=== PATIENT | male | born 1955 | race Caucasian/White ===

== ENCOUNTER 2017-12-29 07:15 | Emergency (ER) | payer BC ==
[~2017-12-29] VITALS: Ht 170.2 cm; Wt 82.5 kg
--- OUTSIDE RECORDS SUMMARY | ~2017-12-29 | XMS | Clinical Summary ---
Demographics + + + | Address | [address] | | | [place] [address] | + + + | Home Phone | | + + + | Preferred Language | Unknown | + + + | Marital Status | Single | + + + | Jehovah'S Witness Affiliation | Unknown | + + + | Race | Unknown | + + + | Ethnic Group | Other Race | + + + Author + + + | Author | [facility] | + + + | Organization | [facility] | + + + | Address | Unknown | + + + | Phone | Unavailable | + + + Care Team Providers + +------+ + | Care Ballast Inspector Name | Role | Phone | + +------+ + PP | Unavailable | + +------+ + Source Comments AI is fully live on both [facility] and [facility] & [facility] Allergies Not on File Current Medications [...]
[~2017-12-29 07:15] MED LIST: AUGMENTIN 875-1 EACH PO; [UNRECOGNIZED DRUG - REMARK]
[2017-12-29] MEDS ORDERED: ASPIR 8181 MG PO (07:31)
[2017-12-29] MEDS ORDERED: LOSARTAN-HCTZ1 EAC2 PO (07:31)
[2017-12-29] MEDS ORDERED: AMLODIPINE BESYL5 MG PO (07:32)
--- OUTSIDE RECORDS SUMMARY | 2017-12-29 08:06 | XMS | Clinical Summary ---
Demographics + + + | Address | [address] | | | [place] [address] | + + + | Home Phone | | + + + | Preferred Language | Unknown | + + + | Marital Status | Single | + + + | Church Affiliation | Unknown | + + + | Race | Unknown | + + + | Ethnic Group | Other Race | + + + Author + + + | Author | [facility] | + + + | Organization | [facility] | + + + | Address | Unknown | + + + | Phone | Unavailable | + + + Care Team Providers + +------+ + | Care Np Name | Role | Phone | + +------+ + PP | Unavailable | + +------+ + Source Comments AI is fully live on both [facility] and [facility] Allergies Not on File Current Medications Not on file Active Problems Not on file Social History + +-------+ +--------+------+ | Tobacco Use | Types | Packs/Day | Years | Date | | | | | Used | | + +-------+ +--------+------+ | Never Assessed | | | | | + +-------+ +--------+------+ + + + | Sex Assigned at | Date Recorded | | | | + + + | Not on file | | + + + Plan of Treatment + + + + + | Health Maintenance | Due Date | Last Done | Comments | + + + + + | INFLUENZA VACCINE | | | | | (FLU SHOT) | 7 | | | + + + + + Results Not on filefrom Last 3 Months"
== END 2017-12-29 08:16 | disposition home or self-care (01) ==
LOC: ED 07:15
DX: H65.93 Unspecified nonsuppurative otitis media, bilateral (principal); I10 Essential (primary) hypertension; Z79.82 Long term (current) use of aspirin; Z79.899 Other long term (current) drug therapy
CPT/HCPCS: 99282

== ENCOUNTER 2020-07-18 12:05 | Day surgery (SDC) | payer BC ==
[~2020-07-18] VITALS: Ht 170.2 cm; Wt 92.5 kg
[~2020-07-18 12:05] MED LIST changes: +AMLODIPINE BESYL5 MG PO; +ASPIR 8181 MG PO; +LOSARTAN-HCTZ1 EAC2 PO
[2020-07-18] MEDS ORDERED: ESOMEPRAZOLE MA20 MG PO (12:56)
[2020-07-18] MEDS ORDERED: ATORVASTATIN CA20 MG PO (12:57)
[2020-07-18] MEDS ORDERED: ARNUITY ELLIPT50 MCG INH (12:58)
[2020-07-18] MEDS ORDERED: MULTI-VITAMIN1 EACH PO (12:58)
[2020-07-18] MEDS ORDERED: LABETALOL HCL200 MG PO (12:59)
[2020-07-18] MEDS ORDERED: CARDURA8 MG PO (12:59)
--- NOTE | 2020-07-18 14:03 | NUR ---
07/18/20 1403 Marie Jimenez 1356- PT ARRIVES TO PACU EASILY AROUSABLE TO VOICE. PT REPORTS NO PAIN OR NAUSEA. RESP EVEN AND UNLABORED. OXYGEN SAT HIGH 90'S ON 3L VIA NC. PT PASSING FLATUS. 1403- OXYGEN TITRATED OFF.
--- NOTE | 2020-07-20 11:10 | PATH ---
[facility] [address] [place], [place] [address] Signed SPECIMEN(S): A DUODENUM SPECIMEN(S): B ANTRUM SPECIMEN(S): C DISTAL ESOPHAGUS SPECIMEN(S): D MID ESOPHAGUS SPECIMEN(S): E PROXIMAL ESOPHAGUS SPECIMEN(S): F SPLENIC FLEXURE POLYP SPECIMEN(S): G COLON POLYP AT 60 CM SPECIMEN SOURCE: A. DUODENUM B. ANTRUM C. DISTAL ESOPHAGUS D. MID ESOPHAGUS E. PROXIMAL ESOPHAGUS F. SPLENIC FLEXURE POLYP G. COLON POLYP AT 60 CM CLINICAL HISTORY: History adenomatous polyps of colon, diverticulosis, GERD, esophageal dysphagia. Post-op: Benign esophageal nodules, diverticulosis, polyp x2. Esophagogastroduodenoscopy, colonoscopy. MICROSCOPIC DESCRIPTION: Histologic sections of all submitted blocks are examined by light microscopy. These findings, together with the gross examination, support the pathologic diagnosis. FINAL PATHOLOGIC DIAGNOSIS: A. Duodenum, biopsy: - Duodenal mucosa with mild Prashant's gland hyperplasia. - Negative for dysplasia or malignancy. B. Stomach, antrum, biopsy: - Antral/oxyntic type mucosa with mild chronic, inactive gastritis. - Negative for Helicobacter organisms on HE stain. - Negative for dysplasia or malignancy. C. Esophagus, distal, biopsy: - Squamous mucosa with no histopathologic abnormality. - Negative for intestinal metaplasia, dysplasia, or malignancy. D. Esophagus, mid, biopsy: - Squamous mucosa with minimal chronic inflammation and reactive changes. - Negative for intestinal metaplasia, dysplasia, or malignancy. E. Esophagus, proximal, biopsy: PATIENT NAME: TERRY HANSEN PATHOLOGY DATE OF : 57 REPORT #: [id number] PHYSICIAN: EVELYN CRESPO PCP: JOSÉ SANTAMARIA MD REPORT IS CONFIDENTIAL AND NOT TO BE RELEASED WITHOUT AUTHORIZATION [facility] [address] [place], [place] [address] Signed - Squamous mucosa with no histopathologic abnormality. - Negative for intestinal metaplasia, dysplasia, or malignancy. F. Colon, splenic flexure, polyp, polypectomy: - Tubular adenoma. - Negative for high-grade dysplasia or malignancy. G. Colon, polyp at 60 cm, polypectomy: - Fragments of tubular adenoma. - Negative for high-grade dysplasia or malignancy. NAL:cml:C2NR GROSS DESCRIPTION: Seven specimens are received in seven containers, labeled "MN." A. The specimen, labeled "MN," and designated on the requisition "duodenum biopsy," is received in formalin and consists of two fragments of pink-rosen tissue (0.5 x 0.2 x 0.2 cm in aggregate). The specimen is submitted entirely in cassette (A1). B. The specimen, labeled "MN," and designated on the requisition "antrum biopsy," is received in formalin and consists of two fragments of pink-rosen tissue (0.5 x 0.3 x 0.2 cm in aggregate). The specimen is submitted entirely in cassette (B1). C. The specimen, labeled "MN," and designated on the requisition "distal esophagus biopsy," is received in formalin and consists of two fragments of white-rosen tissue (0.5 x 0.3 x 0.1 cm in aggregate). The specimen is submitted entirely in cassette (C1). D. The specimen, labeled "MN," and designated on the requisition "mid esophagus nodularity," is received in formalin and consists of two fragments of white-rosen tissue (0.5 x 0.4 x 0.1 cm in aggregate). The specimen is submitted entirely in cassette (D1). E. The specimen, labeled "MN," and designated on the requisition "proximal esophagus nodularity," is received in formalin and consists of one fragment of white-rosen tissue (0.4 x 0.2 x 0.1 cm in aggregate). The specimen is submitted entirely in cassette (E1). F. The specimen, labeled "MN," and designated on the requisition "splenic flexure polyp," is received in formalin and consists of one fragment pink-rosen tissue (0.2 x 0.2 x 0.2 cm). The specimen is submitted entirely in cassette (F1). G. The specimen, labeled "MN," and designated on the requisition "colon polypectomy at 60 cm," is received in formalin and consists of four fragments of pink-rosen tissue (0.6 x 0.5 x 0.3 cm in PATIENT NAME: TERRY HANSEN PATHOLOGY DATE OF : 57 REPORT #: [id number] PHYSICIAN: EVELYN CRESPO PCP: JOSÉ SANTAMARIA MD REPORT IS CONFIDENTIAL AND NOT TO BE RELEASED WITHOUT AUTHORIZATION [facility] [address] [place], [place] [address] Signed aggregate). The specimen is submitted entirely in cassette (G1). AC (under the direct supervision of a pathologist) The Gross Description was prepared using a voice recognition system. The report was reviewed for accuracy; however, sound-alike word errors, addition and/or deletions may occur. If there is any question about this report, please contact Client Services. PERFORMING LABORATORY: The technical component was performed by [facility], [address] [place] [id number] (Splitter Head: Fernanda Kang MD; CLIA# [id number]). [facility] [address] [place] [address] (CLIA# [id number]). Diagnostician: Viji Wheeler MD Pathologist Electronically Signed 07/20/2020 Copies: ~ PATIENT NAME: TERRY HANSEN PATHOLOGY DATE OF : 57 REPORT #: [id number] PHYSICIAN: EVELYN CRESPO PCP: JOSÉ SANTAMARIA MD REPORT IS CONFIDENTIAL AND NOT TO BE RELEASED WITHOUT AUTHORIZATION
--- NOTE | 2020-07-20 12:08 | OR ---
[facility] [address] [place], [place] [address] Signed DATE OF OPERATION: 07/18/2020 SURGEON: Edwar Astorga MD PREOPERATIVE DIAGNOSES: 1. Longstanding reflux disease. 2. Mild dysphagia. 3. History of diverticulosis, surveillance colonoscopy. POSTOPERATIVE DIAGNOSES: 1. Mild benign-appearing superficial nodularity of the esophagus and marginal flap valve. 2. Extensive diverticulosis. 3. Polyps x2 of colon. PROCEDURES: 1. Esophagogastroduodenoscopy with biopsy. 2. Total colonoscopy to cecum with snare polypectomy x1 (cold) and cold morcellation polypectomy x1. ANESTHESIA: Intravenous sedation, fentanyl 200 mcg and Versed 9 mg total. INDICATIONS: This 65-year-old white man, who is well known to me from the past and is a patient of Dr. Santamaria. He has been treated for reflux disease over time, occasionally has symptoms from it. He has had occasional dysphagia. Additionally, he has had colonoscopy in the past, noted to have diverticulosis. He is admitted at this time to undergo upper endoscopy and surveillance colonoscopy, understand the risks of bleeding, infection, perforation. FINDINGS: Upper endoscopy showed only some superficial small nodularity to the esophageal mucosa, not worrisome for malignancy. This flap valve was somewhat effaced. The stomach and duodenum were normal except there was some bilious fluid within the stomach. As regards to colon, had extensive diverticular disease from the sigmoid and left colon, but no sign of diverticulosis elsewhere. He had two small polyps, one at the splenic flexure and the other in the sigmoid, both excised completely. Electronically Signed By: EDWAR ASTORGA MD 07/20/20 1208 PATIENT NAME: TERRY HANSEN OPERATIVE REPORT DATE OF : 57 REPORT #: [id number] PHYSICIAN: EDWAR ASTORGA MD PCP: JOSÉ SANTAMARIA MD REPORT IS CONFIDENTIAL AND NOT TO BE RELEASED WITHOUT AUTHORIZATION [facility] [address] [place], [place] [address] Signed DESCRIPTION OF PROCEDURE: The patient was brought to the endoscopy suite given topical Hurricaine spray hypopharyngeal anesthesia and placed in lateral decubitus position given intravenous sedation to the point of slurred speech and nystagmus. A bite block was placed. An Olympus video upper endoscope was passed by hypopharynx. Vocal cords were visualized well and were normal. Scope was advanced to the esophagus. Brief examination showed it to be normal initially. The scope was advanced to the stomach, which was insufflated with air with some bilious fluid within the stomach, but not much. Rugal folds appeared normal. Antral motility normal. Pylorus normal. Scope was passed through into the duodenum, which was normal. Biopsies were taken of the duodenum to assess for celiac disease. The scope was withdrawn and biopsy was taken of the antrum for both CAMILLE and pathologic testing. Retroflex view was undertaken showing no sign of hiatal hernia proper, but a somewhat effaced flap valve. The scope was withdrawn and the distal esophagus was biopsied. There was no evidence of Bradford's epithelium. 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 The scope was removed and plans made for colonoscopy. Additional sedation was given. Digital rectal examination was performed. An Olympus video colonoscope passed into the rectum. Scope was manipulated throughout the colon noting extensive diverticular changes in the sigmoid and left colon. The scope was ultimately advanced to the cecum. The ileocecal valve and appendiceal orifice were normal. The scope was withdrawn from that point and careful inspection upon withdrawal of scope showed no sign of abnormality into the splenic flexure, where a small polyp was noted, this was excised with cold morcellation technique, there was a very small polyp. The scope was further withdrawn, and at approximately the 60 cm parth in the left colon was a more substantial polyp, though it was still soft and it was excised with cold snare technique without problem. There was no untoward bleeding. The scope was withdrawn further, only diverticular changes were seen, rectum had some hemorrhoidal change. The scope was removed and the patient was taken to the recovery room in good condition. CONCLUDING DIAGNOSES: 1. Innocuous mucosal nodules of the midesophagus, no sign of stricture proper. 2. Poor flap valve. No evidence of hiatal hernia proper, however. 3. Extensive diverticulosis, left colon. 4. Polyps x2 (excised). PLAN: He will return to the ongoing care with Dr. José Santamaria. We would recommend repeat colonoscopy in 5 years or sooner if symptoms. If he should have reflux symptoms, consideration will be made for PPI medication or H2 mt depending on preference of Electronically Signed By: EDWAR ASTORGA MD 07/20/20 1208 PATIENT NAME: TERRY HANSEN OPERATIVE REPORT DATE OF : 57 REPORT #: [id number] PHYSICIAN: EDWAR ASTORGA MD PCP: JOSÉ SANTAMARIA MD REPORT IS CONFIDENTIAL AND NOT TO BE RELEASED WITHOUT AUTHORIZATION [address] [address] Signed his primary physician. MD NURY Narayanan/MODL /[id number] cc: José Santamaria MD Copies: JOSÉ SANTAMARIA MD ~ Electronically Signed By: EDWAR ASTORGA MD 07/20/20 1208 PATIENT NAME: TERRY HANSEN OPERATIVE REPORT DATE OF : 57 REPORT #: [id number] PHYSICIAN: EDWAR ASTORGA MD PCP: JOSÉ SANTAMARIA MD REPORT IS CONFIDENTIAL AND NOT TO BE RELEASED WITHOUT AUTHORIZATION
== END 2020-07-18 14:35 | disposition home or self-care (01) ==
LOC: OPS 12:05 → DS 12:05 → OPS 13:00
PROVIDERS: ATTEND Surgery
PROC: 0DB18ZX Excision of Upper Esophagus, Via Natural or Artificial Opening Endoscopic, Diagnostic (ICD-10-PCS; 2020-07-18)
PROC: 0DB28ZX Excision of Middle Esophagus, Via Natural or Artificial Opening Endoscopic, Diagnostic (ICD-10-PCS; 2020-07-18)
PROC: 0DB38ZX Excision of Lower Esophagus, Via Natural or Artificial Opening Endoscopic, Diagnostic (ICD-10-PCS; 2020-07-18)
PROC: 0DBG8ZZ Excision of Left Large Intestine, Via Natural or Artificial Opening Endoscopic (ICD-10-PCS; 2020-07-18)
PROC: 0DBL8ZZ Excision of Transverse Colon, Via Natural or Artificial Opening Endoscopic (ICD-10-PCS; 2020-07-18)
PROC: 0DB98ZX Excision of Duodenum, Via Natural or Artificial Opening Endoscopic, Diagnostic (ICD-10-PCS; principal; 2020-07-18 13:00)
PROC: 0DB78ZX Excision of Stomach, Pylorus, Via Natural or Artificial Opening Endoscopic, Diagnostic (ICD-10-PCS; 2020-07-18 13:00)
DX: Z12.11 Encounter for screening for malignant neoplasm of colon (principal); D12.3 Benign neoplasm of transverse colon; D12.4 Benign neoplasm of descending colon; K57.30 Diverticulosis of large intestine without perforation or abscess without bleeding; K29.50 Unspecified chronic gastritis without bleeding; K21.00 Gastro-esophageal reflux disease with esophagitis, without bleeding; K31.89 Other diseases of stomach and duodenum; I10 Essential (primary) hypertension; F32.9 Major depressive disorder, single episode, unspecified; Z79.899 Other long term (current) drug therapy; Z79.82 Long term (current) use of aspirin; Z86.010 Personal history of colon polyps; Z87.891 Personal history of nicotine dependence
CPT/HCPCS: 99153; G0500; J2250; J3010; J7121

== ENCOUNTER 2024-11-06 06:10 | Day surgery (SDC) | payer MEDICARE, OTHER ==
[~2024-11-06] VITALS: Ht 175.3 cm; Wt 85.0 kg
[~2024-11-06 06:10] MED LIST changes: +ARNUITY ELLIPT50 MCG INH; +ATORVASTATIN CA20 MG PO; +CARDURA8 MG PO; +ESOMEPRAZOLE MA20 MG PO; +LABETALOL HCL200 MG PO; +MIDAZOLAM HCL 5 MG/5 ML VIAL IV PRN; +MULTI-VITAMIN1 EACH PO; +fentaNYL citrate 100 MCG/2 ML VIAL IV PRN
[2024-11-06 06:26] VITALS: BP 171/64
[2024-11-06] MEDS ORDERED: HYDRALAZINE HCL50 MG PO (06:29)
[2024-11-06] MEDS ORDERED: FLUTICASONE PRO16 GM NAS (06:29)
[2024-11-06] MEDS ORDERED: TAMSULOSIN HCL0.4 MG PO (06:30)
[2024-11-06] MEDS ORDERED: AMLODIPINE BESY10 MG PO (06:30)
[2024-11-06] MEDS ORDERED: LOSARTAN POTAS100 MG PO (06:30)
[2024-11-06] MEDS ORDERED: VITAMIN E100 UNI2 PO (06:30)
[2024-11-06] MEDS ORDERED: LIDOCAINE HCL 1% 5 ML SDV INJ ONE (07:00)
[2024-11-06] MEDS ORDERED: LACTATED RINGER'S 1,000 ML IV SCH (07:00)
[2024-11-06] MEDS ORDERED: IBLOOD GLUCOSE TEST STRIP 1 EA TEST VI PRN (07:00)
[2024-11-06] MEDS ORDERED: fentaNYL citrate 100 MCG/2 ML VIAL ONE (07:14)
[2024-11-06] MEDS ORDERED: MIDAZOLAM HCL 5 MG/5 ML VIAL ONE (07:14)
--- NOTE | 2024-11-06 08:19 | NUR ---
11/06/24 0819 Abena Iniguez 0811-PT ARRIVES TO PACU VIA STRETCHER, RESTING ON LT SIDE. PT A+O X4, PT DENIES PAIN OR NAUSEA, PT ENCOURAGED TO PASS GAS. VSS ON 2L VIA NC, RR EVEN AND UNLABORED. 0818-PT TITRATED TO RA, VS REMAIN STABLE.
[2024-11-06 08:31] VITALS: BP 113/98
--- NOTE | 2024-11-06 11:30 | OR ---
[facility] [address] [place], [place] [address] Signed DATE OF OPERATION: 11/06/2024 SURGEON: Edwar Astorga MD PREOPERATIVE DIAGNOSIS: History of polyp and diverticulosis. POSTOPERATIVE DIAGNOSES: 1. Diverticulosis. 2. Polyps x4. PROCEDURE: Total colonoscopy to cecum with cold snare polypectomy x2 and cold morcellation polypectomy x2. ANESTHESIA: Intravenous sedation, fentanyl 150 mcg and Versed 7 mg. INDICATIONS: This 69-year-old white man is a patient of Dr. Alicia Pineda. He has undergone colonoscopy by me in the past. He last underwent colonoscopy five years ago and was recommended to have repeat colonoscopy based on prior history of polyps. He has no current symptoms of bleeding, diarrhea, or constipation. He is admitted at this time to undergo colonoscopy for surveillance. He understands the risk of bleeding, infection, and perforation. FINDINGS: The prep was good. Complete colonoscopy was undertaken to the cecum with a full intubation of the cecum. Numerous diverticula were seen in the sigmoid and left colon. He had four polyps in aggregate one in the cecum, one in the right colon, another in the transverse and another in the left colon. All were excised completely. DESCRIPTION OF PROCEDURE: The patient was brought to the endoscopy suite and placed in the lateral decubitus position given intravenous sedation to the point of slurred speech and nystagmus with full cardiopulmonary monitoring. Digital rectal examination was normal. An Olympus video colonoscope was passed into the rectum and manipulated throughout the colon noting numerous diverticula of the sigmoid and left colon. Scope was ultimately passed to the cecum. The ileocecal valve and appendiceal orifice were well identified Electronically Signed By: EDWAR ASTORGA MD 11/06/24 1130 PATIENT NAME: TERRY HANSEN OPERATIVE REPORT DATE OF : 57 REPORT #: [id number] PHYSICIAN: EDWAR ASTORGA MD PCP: ALICIA PINEDA MD REPORT IS CONFIDENTIAL AND NOT TO BE RELEASED WITHOUT AUTHORIZATION [facility] [address] [place], [place] [address] Signed and found to be normal. Scope was manipulated and found was a small polyp of the cecum. This was excised with cold morcellation technique. Further withdrawal showed another similar such polyp in the descending right colon, which was excised with cold morcellation technique. Further withdrawal showed a similar polyp, slightly larger in the transverse colon, excised with cold snare technique. Further withdrawal showed diverticula once again in the left colon and in the mid left colon was a small polyp, for which cold snare excision was accomplished removing the polyp entirely. Further withdrawal showed no other abnormality. Retroflexed view of the rectum was normal. 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 CONCLUDING DIAGNOSES: 1. Polyps x4. 2. Diverticulosis. PLAN: Recommend repeat colonoscopy in 5-7 years or sooner if symptoms should develop. We would recommend high-fiber diet. He will return to the ongoing care of Dr. Alicia Pineda. MD NURY Narayanan/AFIA /[id number] cc: Alicia Pineda MD Copies: ALICIA PINEDA MD ~ Electronically Signed By: EDWAR ASTORGA MD 11/06/24 1130 PATIENT NAME: TERRY HANSEN OPERATIVE REPORT DATE OF : 57 REPORT #: [id number] PHYSICIAN: EDWAR ASTORGA MD PCP: ALICIA PINEDA MD REPORT IS CONFIDENTIAL AND NOT TO BE RELEASED WITHOUT AUTHORIZATION
--- NOTE | 2024-11-10 11:21 | PATH ---
[facility] [address] [place], [place] [address] Signed SPECIMEN(S): A ASCENDING/RIGHT COLON POLYP SPECIMEN(S): B CECUM COLON POLYP SPECIMEN(S): C TRANSVERSE COLON POLYP SPECIMEN(S): D DESCENDING/LEFT COLON POLYP SPECIMEN SOURCE: A. ASCENDING/RIGHT COLON POLYP B. CECUM COLON POLYP C. TRANSVERSE COLON POLYP D. DESCENDING/LEFT COLON POLYP CLINICAL HISTORY: Pre-op: History of polyp and diverticulosis. Postop: Polyp. FINAL PATHOLOGIC DIAGNOSIS: A. Ascending/right colon polyp: - Tubular adenoma (two fragments). B. Cecum colon polyp: - Tubular adenoma (one fragment). - Superficial fragments of colonic mucosa with some features suggestive of serrated polyp/adenoma (one fragment). C. Transverse colon polyp: - Tubular adenoma (one fragment). - Hyperplastic polyp (one fragment). D. Descending/left colon polyp: - Tubular adenoma (one fragment). JVR:starla MICROSCOPIC EXAMINATION: Histologic sections of all submitted blocks are examined by light microscopy. These findings, together with the gross examination, support the pathologic diagnosis. GROSS DESCRIPTION: A. The specimen, labeled and designated "Monico a M, ascending/right colon polyp," is received in formalin and consists of two rosen soft tissue fragments, ranging from 0.2-0.3 cm. Entirely submitted in (A1). B. The specimen, labeled and designated "Niord, a M, cecum colon polyp," is received in formalin and consists of two rosen soft tissue fragments, ranging from 0.2-0.3 cm. Entirely submitted in (B1). PATIENT NAME: TERRY HANSEN PATHOLOGY DATE OF : 57 REPORT #: [id number] PHYSICIAN: [employer] PATHOLOGY PCP: ALICIA BAIN MD REPORT IS CONFIDENTIAL AND NOT TO BE RELEASED WITHOUT AUTHORIZATION [facility] [address] [place], [place] [address] Signed C. The specimen, labeled and designated "Monico, a M, transverse colon polyp," is received in formalin and consists of two rosen soft tissue fragments, ranging from 0.2-0.4 cm. Entirely submitted in (C1). D. The specimen, labeled and designated "Monico, a M, descending/left colon polyp," is received in formalin and consists of one rosen soft tissue fragment, 0.3 cm. Entirely submitted in (D1). AB (under the direct supervision of a pathologist) The Gross Description was prepared using a voice recognition system. The report was reviewed for accuracy; however, sound-alike word errors, addition and/or deletions may occur. If there is any question about this report, please contact Client Services. PERFORMING LABORATORY: Technical component was performed by [facility], [address] [place] [id number] (CLIA# [id number]). Professional interpretation was performed by [facility], [address] [place] [id number] (CLIA#: [id number]). Diagnostician: Carlos Georges MD Pathologist Electronically Signed 11/10/2024 Copies: ~ PATIENT NAME: TERRY HANSEN PATHOLOGY DATE OF : 57 REPORT #: [id number] PHYSICIAN: EVELYN PATHOLOGY PCP: ALICIA BAIN MD REPORT IS CONFIDENTIAL AND NOT TO BE RELEASED WITHOUT AUTHORIZATION
== END 2024-11-06 08:40 | disposition home or self-care (01) ==
LOC: DS 06:10
PROVIDERS: ATTEND Surgery
PROC: 0DBL8ZZ Excision of Transverse Colon, Via Natural or Artificial Opening Endoscopic (ICD-10-PCS; 2024-11-06)
PROC: 0DBF8ZZ Excision of Right Large Intestine, Via Natural or Artificial Opening Endoscopic (ICD-10-PCS; 2024-11-06)
PROC: 0DBG8ZZ Excision of Left Large Intestine, Via Natural or Artificial Opening Endoscopic (ICD-10-PCS; 2024-11-06)
PROC: 0DBH8ZZ Excision of Cecum, Via Natural or Artificial Opening Endoscopic (ICD-10-PCS; principal; 2024-11-06 07:30)
DX: Z12.11 Encounter for screening for malignant neoplasm of colon (principal); D12.0 Benign neoplasm of cecum; D12.2 Benign neoplasm of ascending colon; D12.3 Benign neoplasm of transverse colon; D12.4 Benign neoplasm of descending colon; K57.30 Diverticulosis of large intestine without perforation or abscess without bleeding; I10 Essential (primary) hypertension; Z88.8 Allergy status to other drugs, medicaments and biological substances; Z79.899 Other long term (current) drug therapy; Z79.82 Long term (current) use of aspirin
CPT/HCPCS: 99153; G0500; J2250; J3010; J7121